=== PATIENT | male | born 1995 | race Caucasian/White ===

== ENCOUNTER → 2017-05-30 | Outpatient (CLI) | payer OTHER ==
--- NOTE | 2017-05-30 12:51 | RAD ---
INDICATION: KNEE PAIN COMPARISON: None. IMPRESSION: Bilateral knees: 2 views of each knee obtained without definite acute fracture or dislocation. There may be a small amount of joint fluid bilaterally as well as small amount of edema in Hoffa's fat pad. There is a possible small lucent region within the bilateral proximal tibia at the lateral tibial spine measuring approximately 8 mm on left and 6 mm on right. Nonspecific appearance but can be seen with causes such as subchondral cyst but if the patient is symptomatic and further evaluation is desired MRI can better evaluate.
== END | disposition home or self-care (01) ==
LOC: PMG 11:30
PROVIDERS: ATTEND Nurse Practitioner Family
DX: M25.561 Pain in right knee (principal)
CPT/HCPCS: 73560

== ENCOUNTER → 2017-06-09 | Outpatient (CLI) | payer OTHER ==
--- NOTE | 2017-06-09 14:55 | RAD ---
3 views thoracic spine 06/09/2017 Clinical indication: Low back and thoracic pain. Comparison: None. Findings: Mild leftward thoracic spinal curvature which may be positional. The vertebral body heights are maintained. Impression: No radiographic evidence of acute thoracic osseous abnormality.
--- NOTE | 2017-06-09 14:57 | RAD ---
3 views lumbar spine 06/09/2017 Clinical indication: Back pain. Comparison: None. Findings: There are 5 nonrib-bearing lumbar-type vertebral bodies with the first considered L1 for the purposes of this dictation. There is an ununited left L1 transverse process, a normal variant. Vertebral body heights are maintained. Disc spaces are preserved. No evidence of listhesis. Impression: No acute osseous abnormality.
== END | disposition home or self-care (01) ==
LOC: PMG 12:42
PROVIDERS: ATTEND Nurse Practitioner Family
DX: M54.5 Low back pain (principal); M54.6 Pain in thoracic spine
CPT/HCPCS: 72072; 72100

== ENCOUNTER → 2020-03-20 | Outpatient (CLI) | payer OTHER, BC ==
--- NOTE | 2020-03-20 15:21 | RAD ---
EXAM: Pelvis and left hip, 3 views. HISTORY: History of pelvic fracture. Trauma. COMPARISON: None. FINDINGS: A frontal view the pelvis and 2 views of the left hip are obtained. There is no acute fracture. The femoral heads are normal in configuration and seated peripherally. There are few pelvic phleboliths. 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 There is a suspected bone island within the right sacrum. IMPRESSION: No acute osseous finding. Electronically signed by: Nasreen Greene MD (03/20/2020 3:18 PM) [id number]
== END ==
LOC: RAD 11:45
PROVIDERS: ATTEND Physician Assistant Medical
DX: M25.552 Pain in left hip (principal); Z87.81 Personal history of (healed) traumatic fracture
CPT/HCPCS: 73502